=== PATIENT | female | born 1965 | race African-American/Black ===

== ENCOUNTER 2022-04-23 09:52 | Emergency (ER) | payer MEDICARE ==
[~2022-04-23] VITALS: Ht 154.9 cm; Wt 88.0 kg
[2022-04-23] MEDS ORDERED: PAXLOVID 10 X 11 TAB PO (11:35)
[2022-04-23 11:45] VITALS: BP 127/62
== END 2022-04-23 11:48 | disposition home or self-care (01) ==
LOC: ED 09:52
DX: U07.1 COVID-19 (principal); R05.9 Cough, unspecified; R09.89 Other specified symptoms and signs involving the circulatory and respiratory systems; I10 Essential (primary) hypertension; K21.9 Gastro-esophageal reflux disease without esophagitis; Z86.718 Personal history of other venous thrombosis and embolism